=== PATIENT | male | born 1975 | race African-American/Black ===

== ENCOUNTER 2024-02-21 18:03 | Inpatient (IN) | payer MEDICAID, OTHER ==
[~2024-02-21] VITALS: Ht 185.4 cm; Wt 74.6 kg
[2024-02-21] MEDS: ARIPiprazole 15 MG TABLET PO ONE (20:13)
[2024-02-21] MEDS: ACETAMINOPHEN 500 MG TABLET PO ONE (20:13)
[2024-02-21 20:45] LABS: BASOPHILS % (AUTO) 0.6 % (0.0-2.0); EOSINOPHILS % (AUTO) 2.4 % (1.0-6.0); HEMATOCRIT 42.3 % (41-53); HEMOGLOBIN 13.7 g/dL (13.5-17.5); LYMPHOCYTES # (AUTO) 1.3 K/uL (1.0-4.8); LYMPHOCYTES % (AUTO) 24.4 % (22.0-44.0); MEAN CORPUSCULAR HEMOGLOBIN 27.9 pg (26.0-34.0); MEAN CORPUSCULAR HGB CONC 32.4 G/dL (31.0-37.0); MEAN CORPUSCULAR VOLUME 86 fL (80-100); MONOCYTES # (AUTO) 0.5 K/uL (0.1-1.0); MONOCYTES % (AUTO) 8.6 % (2.0-9.0); NEUTROPHILS # (AUTO) 3.5 K/uL (1.8-7.7); PLATELET COUNT (AUTO) 208 K/uL (150-450); RED BLOOD CELL COUNT(AUTO) 4.91 MIL/uL (4.50-5.90); RED CELL DISTRIBUTION WIDTH 14.4 % (11.5-14.5); WHITE BLOOD COUNT (AUTO) 5.5 K/uL (4.5-11.0)
[2024-02-21 20:46] LABS: ANION GAP 7 mmol/L (8-16); CALCIUM, TOTAL 8.8 mg/dL (8.8-10.5); CARBON DIOXIDE 31 mmol/L (22-29); CHLORIDE 105 mmol/L (98-107); CREATININE 1.24 mg/dL (0.60-1.30); GLOMERULAR FILTR. RATE CALC > 60 mL/min (>60); GLUCOSE,RANDOM 93 mg/dL (70-110); POTASSIUM 4.4 mmol/L (3.5-5.1); SODIUM SERUM 143 mmol/L (136-145); UREA NITROGEN, BLOOD 17 mg/dL (7-18)
[2024-02-21 20:49] LABS: ALANINE AMINOTRANSFERASE 38 U/L (12-78); ALBUMIN 3.7 g/dL (3.4-5.0); ALKALINE PHOSPHATASE 118 U/L (46-116); ASPARTATE AMINOTRANSFERASE 15 U/L (15-37); BILIRUBIN,TOTAL 0.2 mg/dL (0.1-1.0); TOTAL PROTEIN, SERUM 7.9 g/dL (6.4-8.2)
[2024-02-21 20:51] LABS: ALCOHOL, BLOOD (SERUM) < 3 mg/dL (0-10)
[2024-02-22 08:23] LABS: COVID AG,FIA SOURCE NASAL SWAB
[2024-02-22 09:25] LABS: SARS-COV2 (COVID) ANTIGEN,FIA Negative (Negative)
[2024-02-22] MEDS ORDERED: HALOPERIDOL 5 MG TABLET PO PRN (17:15)
[2024-02-22] MEDS ORDERED: ZOLPIDEM TARTRATE 10 MG TABLET PO PRN (17:15)
[2024-02-22] MEDS ORDERED: LORazepam 2 MG TABLET PO PRN (17:15)
[2024-02-22 17:59] LABS: ALCOHOL, URINE DRUG SCREEN NEGATIVE (NEGATIVE); AMPHET/METH SCREEN,URINE POSITIVE (NEGATIVE); BARBITURATE SCREEN, URINE NEGATIVE (NEGATIVE); BENZODIAZEPINES SCREEN,URINE NEGATIVE (NEGATIVE); CANNABINOID SCREEN,URINE POSITIVE (NEGATIVE); COCAINE SCREEN,URINE POSITIVE (NEGATIVE); METHADONE SCREEN, URINE NEGATIVE (NEGATIVE); OPIATE SCREEN,URINE NEGATIVE (NEGATIVE); PHENCYCLIDINE SCREEN,URINE NEGATIVE (NEGATIVE)
[2024-02-22 23:11] VITALS: BP 126/86; PULSE 65; RESP 18; TEMP 98.1
[2024-02-22] MEDS ORDERED: MAGNESIUM HYDROXIDE SUSPENSION 30 ML UDCUP PO PRN (23:30)
[2024-02-22] MEDS ORDERED: CloNIDine HCL 0.1 MG TABLET PO PRN (23:30)
[2024-02-22] MEDS ORDERED: ACETAMINOPHEN 325 MG TABLET PO PRN (23:30)
[2024-02-22] MEDS ORDERED: PETROLATUM,WHITE 28 GM JELLY TP PRN (23:30)
[2024-02-22] MEDS ORDERED: LOPERAMIDE HCL 2 MG CAPSULE PO PRN (23:30)
[2024-02-22] MEDS ORDERED: DOCUSATE SODIUM 100 MG CAPSULE PO PRN (23:30)
[2024-02-22] MEDS ORDERED: ALBUTEROL SULFATE HFA 90 MCG/PUFF 8 GM INHALER IH PRN (23:30)
[2024-02-22] MEDS ORDERED: GuaiFENesin/D-METHORPHAN [SUGAR-FREE] 200-20MG/10 ML SYRUP UDCUP PO PRN (23:30)
[2024-02-22] MEDS ORDERED: IBUPROFEN 400 MG TABLET PO PRN (23:30)
[2024-02-22] MEDS ORDERED: ONDANSETRON HCL 4 MG TABLET PO PRN (23:30)
[2024-02-22] MEDS ORDERED: PNEUMOCOCCAL VACCINE POLYVALENT 0.5 ML SYRINGE [PPSV23] IM. ONE (23:45)
[2024-02-23 09:11] VITALS: BP 131/88; PULSE 81; RESP 19; TEMP 98.5
[2024-02-23] MEDS ORDERED: MIRT-92 PO (11:08)
[2024-02-23] MEDS ORDERED: ARIP10TA38 PO (11:08)
[2024-02-23] MEDS ORDERED: BUPR-49 PO (11:08)
[2024-02-23] MEDS: BuPROPion HCL XL 150 MG ER TABLET PO SCH (13:15)
[2024-02-23] MEDS: ARIPiprazole 10 MG TABLET PO SCH (13:15)
[2024-02-23] MEDS ORDERED: OMEP20CA13 PO (14:59)
[2024-02-23] MEDS: MAG HYDROX/ALUMINUM HYD/SIMETH ES 30 ML SUSPENSION UDCUP PO PRN (15:48)
[2024-02-23 23:34] VITALS: BP 124/82; PULSE 62; RESP 18; TEMP 97.4
[2024-02-24 06:43] LABS: HEMOGLOBIN A1C 5.7 % (3.8-5.6)
[2024-02-24 06:59] LABS: BASOPHILS % (AUTO) 1.3 % (0.0-2.0); EOSINOPHILS % (AUTO) 4.6 % (1.0-6.0); HEMATOCRIT 45.4 % (41-53); HEMOGLOBIN 14.6 g/dL (13.5-17.5); LYMPHOCYTES # (AUTO) 1.8 K/uL (1.0-4.8); MEAN CORPUSCULAR HEMOGLOBIN 27.8 pg (26.0-34.0); MEAN CORPUSCULAR HGB CONC 32.1 G/dL (31.0-37.0); MEAN CORPUSCULAR VOLUME 87 fL (80-100); MONOCYTES # (AUTO) 0.4 K/uL (0.1-1.0); MONOCYTES % (AUTO) 9.6 % (2.0-9.0); NEUTROPHILS % (AUTO) 44.5 % (40.0-70.0); PLATELET COUNT (AUTO) 178 K/uL (150-450); RED BLOOD CELL COUNT(AUTO) 5.24 MIL/uL (4.50-5.90); RED CELL DISTRIBUTION WIDTH 14.5 % (11.5-14.5); WHITE BLOOD COUNT (AUTO) 4.6 K/uL (4.5-11.0)
[2024-02-24] MEDS: MULTIVITAMINS, THERAPEUTIC TABLET PO SCH (08:17)
[2024-02-24 10:04] VITALS: BP 127/76; PULSE 80; RESP 18; TEMP 97.2
[2024-02-24 10:38] LABS: ALANINE AMINOTRANSFERASE 39 U/L (12-78); ALBUMIN 3.1 g/dL (3.4-5.0); ALKALINE PHOSPHATASE 98 U/L (46-116); ANION GAP 10 mmol/L (8-16); ASPARTATE AMINOTRANSFERASE 21 U/L (15-37); BILIRUBIN,TOTAL 0.3 mg/dL (0.1-1.0); CARBON DIOXIDE 26 mmol/L (22-29); CHLORIDE 104 mmol/L (98-107); CREATININE 1.18 mg/dL (0.60-1.30); GLOMERULAR FILTR. RATE CALC > 60 mL/min (>60); GLUCOSE,RANDOM 105 mg/dL (70-110); POTASSIUM 4.5 mmol/L (3.5-5.1); SODIUM SERUM 140 mmol/L (136-145); THYROID STIMULATING HORMONE 1.15 uIU/mL (0.36-3.74); TOTAL PROTEIN, SERUM 6.9 g/dL (6.4-8.2); UREA NITROGEN, BLOOD 14 mg/dL (7-18)
[2024-02-24 20:38] VITALS: BP 120/67; PULSE 82; RESP 18; TEMP 97.4
[2024-02-25 09:00] VITALS: BP 145/83; PULSE 78; RESP 18; TEMP 97.5
[2024-02-25 23:32] VITALS: BP 123/76; PULSE 80; RESP 18; TEMP 98.2
[2024-02-26 09:19] VITALS: BP 126/67; PULSE 63; RESP 18; TEMP 97.4
[2024-02-26] MEDS ORDERED: BUPR-49 PO (14:39)
[2024-02-26] MEDS ORDERED: ARIP10TA38 PO (14:39)
[2024-02-26] MEDS: NICOTINE 14 MG/24 HOUR PATCH TD PRN (14:49)
== END 2024-02-26 17:30 | disposition home or self-care (01) | DRG 750 ==
LOC: EDBD 18:18 → EMS 18:18 → 3EI 02-22 21:30
PROVIDERS: ADMIT Psychiatry & Neurology Psychiatry; ATTEND Psychiatry & Neurology Psychiatry
PROC: GZHZZZZ Group Psychotherapy (ICD-10-PCS; principal; 2024-02-23)
PROC: GZ51ZZZ Individual Psychotherapy, Behavioral (ICD-10-PCS; 2024-02-23)
DX: F25.1 Schizoaffective disorder, depressive type (principal); R45.851 Suicidal ideations; F12.10 Cannabis abuse, uncomplicated; Z20.822 Contact with and (suspected) exposure to COVID-19; F14.10 Cocaine abuse, uncomplicated; F15.10 Other stimulant abuse, uncomplicated; I10 Essential (primary) hypertension; K86.1 Other chronic pancreatitis; T40.412A Poisoning by fentanyl or fentanyl analogs, intentional self-harm, initial encounter; Z59.00 Homelessness unspecified; Z79.899 Other long term (current) drug therapy; Z87.891 Personal history of nicotine dependence; Y92.89 Other specified places as the place of occurrence of the external cause
CPT/HCPCS: 80053; 80307; 83036; 84443; 85025; 87081; 99285; G0480

== ENCOUNTER 2024-03-29 23:57 | Inpatient (IN) | payer MEDICAID, OTHER ==
[~2024-03-29] VITALS: Ht 185.4 cm; Wt 76.6 kg
[~2024-03-29 23:57] MED LIST: ARIP10TA38 PO; BUPR-49 PO; OMEP20 PO
[2024-03-30] MEDS ORDERED: GuaiFENesin/D-METHORPHAN [SUGAR-FREE] 200-20MG/10 ML SYRUP UDCUP PO PRN (02:45)
[2024-03-30] MEDS ORDERED: OLANZapine 5 MG RAPDIS TABLET PO PRN ×2 (02:45→10:45)
[2024-03-30] MEDS ORDERED: LOPERAMIDE HCL 2 MG CAPSULE PO PRN (02:45)
[2024-03-30] MEDS ORDERED: ZOLPIDEM TARTRATE 10 MG TABLET PO PRN ×2 (02:45→10:45)
[2024-03-30] MEDS ORDERED: MAGNESIUM HYDROXIDE SUSPENSION 30 ML UDCUP PO PRN (02:45)
[2024-03-30] MEDS ORDERED: TUBERCULIN, PURIFIED PROTEIN DERIVATIVE 5 TU/0.1 ML SYRINGE ID ONE (02:45)
[2024-03-30] MEDS ORDERED: HydrOXYzine PAMOATE 50 MG CAPSULE PO PRN (02:45)
[2024-03-30] MEDS ORDERED: PROMETHAZINE HCL 25 MG TABLET PO PRN (02:45)
[2024-03-30] MEDS ORDERED: LORazepam 2 MG TABLET PO PRN ×2 (02:45→10:45)
[2024-03-30] MEDS ORDERED: MAG HYDROX/ALUMINUM HYD/SIMETH ES 30 ML SUSPENSION UDCUP PO PRN (02:45)
[2024-03-30 03:00] LABS: BASOPHILS % (AUTO) 1.1 % (0.0-2.0); EOSINOPHILS % (AUTO) 3.8 % (1.0-6.0); HEMATOCRIT 45.4 % (41-53); HEMOGLOBIN 14.8 g/dL (13.5-17.5); LYMPHOCYTES # (AUTO) 1.8 K/uL (1.0-4.8); LYMPHOCYTES % (AUTO) 35.1 % (22.0-44.0); MEAN CORPUSCULAR HEMOGLOBIN 28.3 pg (26.0-34.0); MEAN CORPUSCULAR HGB CONC 32.7 G/dL (31.0-37.0); MEAN CORPUSCULAR VOLUME 86 fL (80-100); MONOCYTES # (AUTO) 0.4 K/uL (0.1-1.0); MONOCYTES % (AUTO) 6.7 % (2.0-9.0); NEUTROPHILS # (AUTO) 2.8 K/uL (1.8-7.7); NEUTROPHILS % (AUTO) 53.3 % (40.0-70.0); PLATELET COUNT (AUTO) 170 K/uL (150-450); RED BLOOD CELL COUNT(AUTO) 5.25 MIL/uL (4.50-5.90); RED CELL DISTRIBUTION WIDTH 14.3 % (11.5-14.5); WHITE BLOOD COUNT (AUTO) 5.2 K/uL (4.5-11.0)
[2024-03-30 03:06] LABS: COVID AG,FIA SOURCE NASAL SWAB
[2024-03-30 03:14] LABS: ANION GAP 4 mmol/L (8-16); CALCIUM, TOTAL 9.9 mg/dL (8.8-10.5); CARBON DIOXIDE 35 mmol/L (22-29); CHLORIDE 105 mmol/L (98-107); CREATININE 1.21 mg/dL (0.60-1.30); GLOMERULAR FILTR. RATE CALC > 60 mL/min (>60); GLUCOSE,RANDOM 120 mg/dL (70-110); POTASSIUM 4.9 mmol/L (3.5-5.1); SODIUM SERUM 144 mmol/L (136-145); UREA NITROGEN, BLOOD 13 mg/dL (7-18)
[2024-03-30 03:20] LABS: ALANINE AMINOTRANSFERASE 41 U/L (12-78); ALBUMIN 3.9 g/dL (3.4-5.0); ALKALINE PHOSPHATASE 101 U/L (46-116); ASPARTATE AMINOTRANSFERASE 18 U/L (15-37); BILIRUBIN,TOTAL 0.5 mg/dL (0.1-1.0); TOTAL PROTEIN, SERUM 7.7 g/dL (6.4-8.2)
[2024-03-30 03:27] LABS: SARS-COV2 (COVID) ANTIGEN,FIA Negative (Negative)
[2024-03-30 03:27] LABS: ALCOHOL, BLOOD (SERUM) < 3 mg/dL (0-10)
[2024-03-30] MEDS: FOLIC ACID 1 MG TABLET PO SCH (08:27)
[2024-03-30] MEDS: THIAMINE 100 MG TABLET PO SCH (08:27)
[2024-03-30] MEDS: MULTIVITAMINS WITH MINERALS, THERAPEUTIC TABLET PO SCH (08:27)
[2024-03-30] MEDS: NALTREXONE HCL 50 MG TABLET PO SCH (11:00)
[2024-03-30] MEDS: BuPROPion HCL XL 150 MG ER TABLET PO SCH (12:02)
[2024-03-30] MEDS: ARIPiprazole 5 MG TABLET PO SCH (12:02)
[2024-03-30 12:03] LABS: PH,URINE DRUG SCREEN 7.5 (5.0-8.0)
[2024-03-30 12:09] LABS: ALCOHOL, URINE DRUG SCREEN NEGATIVE (NEGATIVE); AMPHET/METH SCREEN,URINE NEGATIVE (NEGATIVE); BARBITURATE SCREEN, URINE NEGATIVE (NEGATIVE); BENZODIAZEPINES SCREEN,URINE NEGATIVE (NEGATIVE); CANNABINOID SCREEN,URINE POSITIVE (NEGATIVE); COCAINE SCREEN,URINE POSITIVE (NEGATIVE); METHADONE SCREEN, URINE NEGATIVE (NEGATIVE); OPIATE SCREEN,URINE NEGATIVE (NEGATIVE); PHENCYCLIDINE SCREEN,URINE NEGATIVE (NEGATIVE)
[2024-03-30 15:36] VITALS: BP 132/70; PULSE 84; RESP 18; TEMP 97.8
[2024-03-30 20:11] VITALS: RESP 20
[2024-03-30] MEDS: MELATONIN 5 MG TABLET PO SCH (21:00)
[2024-03-31 08:27] VITALS: BP 124/73; PULSE 62; RESP 18; TEMP 98.3
[2024-03-31 20:24] VITALS: BP 130/80; PULSE 91; RESP 18; TEMP 96.6
[2024-04-01] VITALS (7 sets, daily range): BP systolic 135–138; BP diastolic 75–93; PULSE 60–111; RESP 16–18; TEMP 97.6–98.1; O2SAT 96–100
[2024-04-01] MEDS: ACETAMINOPHEN 325 MG TABLET PO PRN (02:24)
[2024-04-01] MEDS: BuPROPion HCL XL 150 MG ER TABLET PO SCH (08:35)
[2024-04-01] MEDS ORDERED: ARIP5TAB37 PO (15:28)
[2024-04-01] MEDS ORDERED: NALT50TA33 PO (15:28)
[2024-04-01] MEDS ORDERED: MELA5TAB40 PO (15:28)
[2024-04-01] MEDS ORDERED: BUPR-49 PO (15:28)
[2024-04-02 08:08] VITALS: BP 152/92; PULSE 97; RESP 16; TEMP 97.8; O2SAT 99
[2024-04-02] MEDS: BuPROPion HCL XL 150 MG ER TABLET PO SCH (08:35)
[2024-04-02] MEDS: ARIPiprazole 10 MG TABLET PO SCH (08:35)
== END 2024-04-02 11:15 | disposition home or self-care (01) | DRG 750 ==
LOC: EMS 23:59 → B2S 03-30 10:57
PROVIDERS: ADMIT Psychiatry & Neurology Psychiatry; ATTEND Psychiatry & Neurology Psychiatry
PROC: GZHZZZZ Group Psychotherapy (ICD-10-PCS; principal; 2024-03-30)
PROC: GZ51ZZZ Individual Psychotherapy, Behavioral (ICD-10-PCS; 2024-03-30)
PROC: GZ58ZZZ Individual Psychotherapy, Cognitive-Behavioral (ICD-10-PCS; 2024-03-30)
DX: F25.9 Schizoaffective disorder, unspecified (principal); R45.851 Suicidal ideations; F15.10 Other stimulant abuse, uncomplicated; F17.210 Nicotine dependence, cigarettes, uncomplicated; F32.A Depression, unspecified; Z20.822 Contact with and (suspected) exposure to COVID-19; I10 Essential (primary) hypertension; J44.9 Chronic obstructive pulmonary disease, unspecified; F14.10 Cocaine abuse, uncomplicated; Z59.02 Unsheltered homelessness
CPT/HCPCS: 80053; 80307; 85025; G0480; Q9967

== ENCOUNTER 2024-04-02 19:34 | Emergency (ER) | payer MEDICAID, OTHER ==
[~2024-04-02] VITALS: Ht 185.4 cm; Wt 75.0 kg
[~2024-04-02 19:34] MED LIST changes: +ARIP5TAB37 PO; +MELA5TAB40 PO; +NALT50TA33 PO
[2024-04-02 20:14] LABS: HEMOGLOBIN 15.9 g/dL (13.5-17.5); LYMPHOCYTES # (AUTO) 1.5 K/uL (1.0-4.8); MEAN CORPUSCULAR HEMOGLOBIN 28.2 pg (26.0-34.0); MONOCYTES # (AUTO) 0.3 K/uL (0.1-1.0)
[2024-04-02 20:17] LABS: BASOPHILS % (AUTO) 0.6 % (0.0-2.0); EOSINOPHILS % (AUTO) 0.6 % (1.0-6.0); HEMATOCRIT 48.5 % (41-53); LYMPHOCYTES % (AUTO) 28.9 % (22.0-44.0); MEAN CORPUSCULAR HGB CONC 32.8 G/dL (31.0-37.0); MEAN CORPUSCULAR VOLUME 86 fL (80-100); MONOCYTES % (AUTO) 5.7 % (2.0-9.0); NEUTROPHILS # (AUTO) 3.3 K/uL (1.8-7.7); NEUTROPHILS % (AUTO) 64.2 % (40.0-70.0); PLATELET COUNT (AUTO) 168 K/uL (150-450); RED BLOOD CELL COUNT(AUTO) 5.65 MIL/uL (4.50-5.90); WHITE BLOOD COUNT (AUTO) 5.1 K/uL (4.5-11.0)
[2024-04-02 20:23] LABS: ANION GAP 8 mmol/L (8-16); CARBON DIOXIDE 32 mmol/L (22-29); CHLORIDE 103 mmol/L (98-107); CREATININE 1.25 mg/dL (0.60-1.30); GLOMERULAR FILTR. RATE CALC > 60 mL/min (>60); GLUCOSE,RANDOM 115 mg/dL (70-110); POTASSIUM 4.8 mmol/L (3.5-5.1); SODIUM SERUM 143 mmol/L (136-145); UREA NITROGEN, BLOOD 18 mg/dL (7-18)
[2024-04-02 20:28] VITALS: TEMP 97.3
[2024-04-02 20:31] LABS: TROPONIN I-HIGH SENSITIVITY 4 ng/L (<76)
[2024-04-02] MEDS: ALBUTEROL SULFATE 2.5 MG/0.5 ML NEB SOLUTION NEB ONE (22:35)
[2024-04-02] MEDS: IPRATROPIUM BROMIDE 0.5 MG/2.5 ML NEB SOLUTION NEB ONE (22:35)
[2024-04-02] MEDS: OxyCODONE HCL/ACETAMINOPHEN 5-325 MG TABLET PO ONE (22:47)
[2024-04-02 23:00] VITALS: PULSE 92; RESP 22; O2SAT 96
[2024-04-02 23:02] VITALS: PULSE 92; RESP 22; O2SAT 96
[2024-04-02 23:04] LABS: TROPONIN I-HIGH SENSITIVITY 4 ng/L (<76)
[2024-04-02 23:28] VITALS: BP 141/89; PULSE 92; RESP 22
== END 2024-04-02 23:46 | disposition home or self-care (01) ==
LOC: EMS 19:34
DX: R07.89 Other chest pain (principal); I10 Essential (primary) hypertension; F17.210 Nicotine dependence, cigarettes, uncomplicated; R06.02 Shortness of breath; F12.90 Cannabis use, unspecified, uncomplicated; F15.10 Other stimulant abuse, uncomplicated
CPT/HCPCS: 71045; 80048; 84484; 85025; 93005; 94640; 99285; 36415-L1; 36415-TC; J7613

== ENCOUNTER 2024-04-04 16:20 | Inpatient (IN) | payer MEDICAID, OTHER ==
[~2024-04-04] VITALS: Ht 185.4 cm; Wt 82.1 kg
[~2024-04-04 16:20] MED LIST changes: -ARIP10TA38 PO; -OMEP20 PO
[2024-04-04 17:09] LABS: BASOPHILS % (AUTO) 0.9 % (0.0-2.0); HEMATOCRIT 46.1 % (41-53); HEMOGLOBIN 14.9 g/dL (13.5-17.5); LYMPHOCYTES # (AUTO) 2.1 K/uL (1.0-4.8); LYMPHOCYTES % (AUTO) 37.2 % (22.0-44.0); MEAN CORPUSCULAR HEMOGLOBIN 27.7 pg (26.0-34.0); MEAN CORPUSCULAR HGB CONC 32.2 G/dL (31.0-37.0); MEAN CORPUSCULAR VOLUME 86 fL (80-100); MONOCYTES # (AUTO) 0.5 K/uL (0.1-1.0); MONOCYTES % (AUTO) 8.5 % (2.0-9.0); NEUTROPHILS # (AUTO) 2.9 K/uL (1.8-7.7); NEUTROPHILS % (AUTO) 51.4 % (40.0-70.0); PLATELET COUNT (AUTO) 165 K/uL (150-450); RED BLOOD CELL COUNT(AUTO) 5.36 MIL/uL (4.50-5.90); RED CELL DISTRIBUTION WIDTH 14.1 % (11.5-14.5); WHITE BLOOD COUNT (AUTO) 5.7 K/uL (4.5-11.0)
[2024-04-04] MEDS ORDERED: ZOLPIDEM TARTRATE 10 MG TABLET PO PRN (17:15)
[2024-04-04] MEDS ORDERED: OLANZapine 5 MG RAPDIS TABLET PO PRN (17:15)
[2024-04-04] MEDS ORDERED: LORazepam 2 MG TABLET PO PRN (17:15)
[2024-04-04 17:20] LABS: ANION GAP 7 mmol/L (8-16); CALCIUM, TOTAL 9.4 mg/dL (8.8-10.5); CARBON DIOXIDE 28 mmol/L (22-29); CHLORIDE 103 mmol/L (98-107); CREATININE 1.25 mg/dL (0.60-1.30); GLOMERULAR FILTR. RATE CALC > 60 mL/min (>60); GLUCOSE,RANDOM 101 mg/dL (70-110); POTASSIUM 3.8 mmol/L (3.5-5.1); SODIUM SERUM 138 mmol/L (136-145); UREA NITROGEN, BLOOD 18 mg/dL (7-18)
[2024-04-04 17:24] LABS: ALANINE AMINOTRANSFERASE 35 U/L (12-78); ALKALINE PHOSPHATASE 90 U/L (46-116); ASPARTATE AMINOTRANSFERASE 21 U/L (15-37); BILIRUBIN,TOTAL 0.6 mg/dL (0.1-1.0); TOTAL PROTEIN, SERUM 7.6 g/dL (6.4-8.2)
[2024-04-04 17:25] LABS: ALCOHOL, BLOOD (SERUM) < 3 mg/dL (0-10)
[2024-04-04 17:40] LABS: COVID AG,FIA SOURCE NASAL SWAB
[2024-04-04] MEDS: DiphenhydrAMINE HCL 25 MG CAPSULE PO ONE (17:54)
[2024-04-04] MEDS: LORazepam 2 MG TABLET PO ONE (17:54)
[2024-04-04 17:59] LABS: SARS-COV2 (COVID) ANTIGEN,FIA Negative (Negative)
[2024-04-04 23:43] VITALS: BP 131/86; PULSE 76; RESP 17; TEMP 98.2; O2SAT 98
[2024-04-05 09:21] VITALS: BP 121/60; PULSE 86; RESP 17; TEMP 97.8; O2SAT 100
[2024-04-05] MEDS ORDERED: PROMETHAZINE HCL 25 MG TABLET PO PRN ×2 (09:30)
[2024-04-05] MEDS ORDERED: HydrOXYzine PAMOATE 50 MG CAPSULE PO PRN (09:30)
[2024-04-05] MEDS ORDERED: LOPERAMIDE HCL 2 MG CAPSULE PO PRN (09:30)
[2024-04-05] MEDS ORDERED: GuaiFENesin/D-METHORPHAN [SUGAR-FREE] 200-20MG/10 ML SYRUP UDCUP PO PRN (09:30)
[2024-04-05] MEDS ORDERED: MAGNESIUM HYDROXIDE SUSPENSION 30 ML UDCUP PO PRN (09:30)
[2024-04-05] MEDS: PALIPERIDONE PALMITATE 234 MG/1.5 ML SYRINGE IM ONE (16:00)
[2024-04-05] MEDS: THIAMINE 100 MG TABLET PO SCH (16:44)
[2024-04-05] MEDS: ACETAMINOPHEN 325 MG TABLET PO PRN (16:44)
[2024-04-05] MEDS: OLANZapine 5 MG RAPDIS TABLET PO SCH (20:18)
[2024-04-05 21:12] VITALS: BP 137/85; PULSE 96; RESP 17; TEMP 97.2; O2SAT 99
[2024-04-05] MEDS: MELATONIN 5 MG TABLET PO SCH (21:22)
[2024-04-06 08:42] VITALS: BP 126/82; PULSE 89; RESP 18; TEMP 97.9; O2SAT 100
[2024-04-06] MEDS: OMEGA-3/DHA/EPA/FISH OIL 1,000 MG CAPSULE PO SCH (09:00)
[2024-04-06] MEDS: BuPROPion HCL XL 150 MG ER TABLET PO SCH (09:00)
[2024-04-06] MEDS: NALTREXONE HCL 50 MG TABLET PO SCH (09:00)
[2024-04-06] MEDS: FOLIC ACID 1 MG TABLET PO SCH (09:00)
[2024-04-06] MEDS: MULTIVITAMINS WITH MINERALS, THERAPEUTIC TABLET PO SCH (09:00)
[2024-04-06 20:03] VITALS: BP 120/80; PULSE 88; RESP 17; TEMP 98; O2SAT 98
[2024-04-06 21:31] LABS: GLUCOMETER DEV NAME(LOC) BV2S.; GLUCOSE,POINT OF CARE 286 MG/DL (70-110)
[2024-04-07 09:00] VITALS: RESP 18
[2024-04-07] MEDS: MAG HYDROX/ALUMINUM HYD/SIMETH ES 30 ML SUSPENSION UDCUP PO PRN (10:58)
[2024-04-07 20:30] VITALS: BP 126/84; PULSE 78; RESP 18; TEMP 97.8; O2SAT 100
[2024-04-07 23:35] VITALS: BP 124/98; PULSE 82; RESP 18; TEMP 97.6; O2SAT 97
[2024-04-08] MEDS: BuPROPion HCL XL 150 MG ER TABLET PO SCH (10:25)
[2024-04-08] MEDS ORDERED: OLAN10TA26 PO (12:49)
[2024-04-08] MEDS ORDERED: OMEG-135 PO (12:49)
[2024-04-08] MEDS ORDERED: OLANZapine 10 MG RAPDIS TABLET PO SCH (21:00)
[2024-04-09] MEDS ORDERED: PALIPERIDONE PALMITATE 156 MG/ML SYRINGE IM ONE (09:00)
== END 2024-04-08 14:20 | disposition home or self-care (01) | DRG 750 ==
LOC: EMS 16:20 → EDH 18:39 → UNDOADMIN 18:39 → B2S 21:34
PROVIDERS: ADMIT Psychiatry & Neurology Psychiatry; ATTEND Psychiatry & Neurology Psychiatry
PROC: GZHZZZZ Group Psychotherapy (ICD-10-PCS; principal; 2024-04-05)
PROC: GZ51ZZZ Individual Psychotherapy, Behavioral (ICD-10-PCS; 2024-04-05)
DX: F25.1 Schizoaffective disorder, depressive type (principal); R45.851 Suicidal ideations; F15.10 Other stimulant abuse, uncomplicated; F17.210 Nicotine dependence, cigarettes, uncomplicated; Z20.822 Contact with and (suspected) exposure to COVID-19; I10 Essential (primary) hypertension; J44.9 Chronic obstructive pulmonary disease, unspecified; F19.10 Other psychoactive substance abuse, uncomplicated; Z79.899 Other long term (current) drug therapy
CPT/HCPCS: 80053; 82962; 85025; 87081; 99285; G0480; Q9967

== ENCOUNTER 2024-04-09 01:01 | Emergency (ER) | payer MEDICAID ==
[~2024-04-09] VITALS: Ht 185.4 cm; Wt 7.6 kg
[~2024-04-09 01:01] MED LIST changes: -ARIP5TAB37 PO; -BUPR-49 PO; +OLAN10TA26 PO; +OMEG-135 PO
[2024-04-09 01:58] VITALS: TEMP 97.9
[2024-04-09 02:24] LABS: BASOPHILS % (AUTO) 1.2 % (0.0-2.0); EOSINOPHILS % (AUTO) 0.8 % (1.0-6.0); HEMATOCRIT 45.1 % (41-53); HEMOGLOBIN 14.8 g/dL (13.5-17.5); LYMPHOCYTES # (AUTO) 1.4 K/uL (1.0-4.8); LYMPHOCYTES % (AUTO) 25.9 % (22.0-44.0); MEAN CORPUSCULAR HGB CONC 32.9 G/dL (31.0-37.0); MEAN CORPUSCULAR VOLUME 85 fL (80-100); MONOCYTES # (AUTO) 0.4 K/uL (0.1-1.0); MONOCYTES % (AUTO) 6.4 % (2.0-9.0); NEUTROPHILS # (AUTO) 3.7 K/uL (1.8-7.7); NEUTROPHILS % (AUTO) 65.7 % (40.0-70.0); PLATELET COUNT (AUTO) 184 K/uL (150-450); RED BLOOD CELL COUNT(AUTO) 5.29 MIL/uL (4.50-5.90); RED CELL DISTRIBUTION WIDTH 13.9 % (11.5-14.5); WHITE BLOOD COUNT (AUTO) 5.6 K/uL (4.5-11.0)
[2024-04-09 02:39] LABS: ANION GAP 4 mmol/L (8-16); CALCIUM, TOTAL 9.5 mg/dL (8.8-10.5); CARBON DIOXIDE 33 mmol/L (22-29); CHLORIDE 101 mmol/L (98-107); CREATININE 1.11 mg/dL (0.60-1.30); GLOMERULAR FILTR. RATE CALC > 60 mL/min (>60); GLUCOSE,RANDOM 109 mg/dL (70-110); POTASSIUM 4.1 mmol/L (3.5-5.1); SODIUM SERUM 138 mmol/L (136-145); UREA NITROGEN, BLOOD 15 mg/dL (7-18)
[2024-04-09 02:47] LABS: ALCOHOL, BLOOD (SERUM) < 3 mg/dL (0-10); B-TYPE NATRIURETIC PEPTIDE < 5 pg/mL (0-100); TROPONIN I-HIGH SENSITIVITY 4 ng/L (<76)
[2024-04-09 02:52] LABS: ALCOHOL, URINE DRUG SCREEN NEGATIVE (NEGATIVE); AMPHET/METH SCREEN,URINE POSITIVE (NEGATIVE); BARBITURATE SCREEN, URINE NEGATIVE (NEGATIVE); BENZODIAZEPINES SCREEN,URINE NEGATIVE (NEGATIVE); CANNABINOID SCREEN,URINE NEGATIVE (NEGATIVE); COCAINE SCREEN,URINE POSITIVE (NEGATIVE); METHADONE SCREEN, URINE NEGATIVE (NEGATIVE); OPIATE SCREEN,URINE NEGATIVE (NEGATIVE); PHENCYCLIDINE SCREEN,URINE NEGATIVE (NEGATIVE)
[2024-04-09 04:32] VITALS: BP 145/90; PULSE 89; RESP 17
== END 2024-04-09 04:35 | disposition home or self-care (01) ==
LOC: EMS 01:03
DX: F15.10 Other stimulant abuse, uncomplicated (principal); R00.2 Palpitations; I10 Essential (primary) hypertension; F17.210 Nicotine dependence, cigarettes, uncomplicated; F14.90 Cocaine use, unspecified, uncomplicated; F12.90 Cannabis use, unspecified, uncomplicated; Z98.890 Other specified postprocedural states
CPT/HCPCS: 99285; 71045; 80048; 83880; 84484; 85025; 36415; 93005; 80307; G0480

== ENCOUNTER 2024-04-14 00:06 | Emergency (ER) | payer MEDICAID, OTHER ==
[~2024-04-14] VITALS: Ht 185.4 cm; Wt 68.2 kg
[2024-04-14 00:23] VITALS: BP 149/98; PULSE 110; RESP 18; TEMP 98.4
[2024-04-14 00:31] LABS: BASOPHILS % (AUTO) 0.3 % (0.0-2.0); HEMATOCRIT 44.4 % (41-53); HEMOGLOBIN 14.3 g/dL (13.5-17.5); LYMPHOCYTES # (AUTO) 2.1 K/uL (1.0-4.8); LYMPHOCYTES % (AUTO) 49.8 % (22.0-44.0); MEAN CORPUSCULAR HEMOGLOBIN 27.9 pg (26.0-34.0); MEAN CORPUSCULAR HGB CONC 32.3 G/dL (31.0-37.0); MEAN CORPUSCULAR VOLUME 87 fL (80-100); MONOCYTES # (AUTO) 0.4 K/uL (0.1-1.0); MONOCYTES % (AUTO) 8.6 % (2.0-9.0); NEUTROPHILS # (AUTO) 1.6 K/uL (1.8-7.7); NEUTROPHILS % (AUTO) 38.3 % (40.0-70.0); PLATELET COUNT (AUTO) 175 K/uL (150-450); RED BLOOD CELL COUNT(AUTO) 5.13 MIL/uL (4.50-5.90); WHITE BLOOD COUNT (AUTO) 4.3 K/uL (4.5-11.0)
[2024-04-14 00:41] LABS: ANION GAP 5 mmol/L (8-16); CALCIUM, TOTAL 9.1 mg/dL (8.8-10.5); CARBON DIOXIDE 33 mmol/L (22-29); CHLORIDE 106 mmol/L (98-107); CREATININE 1.13 mg/dL (0.60-1.30); GLOMERULAR FILTR. RATE CALC > 60 mL/min (>60); GLUCOSE,RANDOM 92 mg/dL (70-110); SODIUM SERUM 144 mmol/L (136-145); UREA NITROGEN, BLOOD 12 mg/dL (7-18)
[2024-04-14 00:46] LABS: ALANINE AMINOTRANSFERASE 41 U/L (12-78); ALBUMIN 3.7 g/dL (3.4-5.0); ALKALINE PHOSPHATASE 87 U/L (46-116); ASPARTATE AMINOTRANSFERASE 25 U/L (15-37); BILIRUBIN,TOTAL 0.2 mg/dL (0.1-1.0); TOTAL PROTEIN, SERUM 7.5 g/dL (6.4-8.2)
[2024-04-14 00:49] LABS: TROPONIN I-HIGH SENSITIVITY 5 ng/L (<76)
[2024-04-14 01:31] LABS: ALCOHOL, URINE DRUG SCREEN NEGATIVE (NEGATIVE); AMPHET/METH SCREEN,URINE NEGATIVE (NEGATIVE); BARBITURATE SCREEN, URINE NEGATIVE (NEGATIVE); BENZODIAZEPINES SCREEN,URINE NEGATIVE (NEGATIVE); CANNABINOID SCREEN,URINE POSITIVE (NEGATIVE); COCAINE SCREEN,URINE POSITIVE (NEGATIVE); METHADONE SCREEN, URINE NEGATIVE (NEGATIVE); OPIATE SCREEN,URINE NEGATIVE (NEGATIVE); PHENCYCLIDINE SCREEN,URINE NEGATIVE (NEGATIVE)
[2024-04-14] MEDS: LORazepam 1 MG TABLET PO ONE (02:08)
== END 2024-04-14 02:17 | disposition home or self-care (01) ==
LOC: EMS 00:07
DX: R07.89 Other chest pain (principal); I10 Essential (primary) hypertension; F14.90 Cocaine use, unspecified, uncomplicated; F12.90 Cannabis use, unspecified, uncomplicated; F17.210 Nicotine dependence, cigarettes, uncomplicated
CPT/HCPCS: 71045; 80053; 80307; 84484; 85025; 93005; 99285; 36415-L1; 36415-TC

== ENCOUNTER 2024-04-16 00:47 | Emergency (ER) | payer OTHER ==
[~2024-04-16] VITALS: Ht 185.4 cm; Wt 70.0 kg
[2024-04-16 00:59] VITALS: TEMP 98.4
[2024-04-16 02:42] VITALS: BP 152/87; PULSE 91; RESP 20
== END 2024-04-16 04:05 | disposition home or self-care (01) ==
LOC: EMS 00:48
DX: F25.1 Schizoaffective disorder, depressive type (principal); F15.10 Other stimulant abuse, uncomplicated; I10 Essential (primary) hypertension; F17.210 Nicotine dependence, cigarettes, uncomplicated; F12.90 Cannabis use, unspecified, uncomplicated; F14.90 Cocaine use, unspecified, uncomplicated; Z59.00 Homelessness unspecified
CPT/HCPCS: 99281; Z7502

== ENCOUNTER 2024-04-19 09:09 | Emergency (ER) | payer OTHER ==
[~2024-04-19] VITALS: Ht 180.3 cm; Wt 72.7 kg
[2024-04-19] MEDS ORDERED: ARIP2TAB3 PO (09:15)
[2024-04-19] MEDS ORDERED: BUPR-344 PO (09:15)
[2024-04-19 09:18] VITALS: TEMP 98.5
[2024-04-19 09:31] LABS: BASOPHILS % (AUTO) 0.6 % (0.0-2.0); HEMATOCRIT 42.6 % (41-53); HEMOGLOBIN 13.8 g/dL (13.5-17.5); LYMPHOCYTES # (AUTO) 1.2 K/uL (1.0-4.8); LYMPHOCYTES % (AUTO) 34.2 % (22.0-44.0); MEAN CORPUSCULAR HEMOGLOBIN 27.8 pg (26.0-34.0); MEAN CORPUSCULAR HGB CONC 32.4 G/dL (31.0-37.0); MEAN CORPUSCULAR VOLUME 86 fL (80-100); MONOCYTES # (AUTO) 0.5 K/uL (0.1-1.0); MONOCYTES % (AUTO) 14.1 % (2.0-9.0); NEUTROPHILS # (AUTO) 1.6 K/uL (1.8-7.7); NEUTROPHILS % (AUTO) 48.1 % (40.0-70.0); PLATELET COUNT (AUTO) 146 K/uL (150-450); RED BLOOD CELL COUNT(AUTO) 4.97 MIL/uL (4.50-5.90); RED CELL DISTRIBUTION WIDTH 13.8 % (11.5-14.5); WHITE BLOOD COUNT (AUTO) 3.4 K/uL (4.5-11.0)
[2024-04-19 09:40] LABS: ANION GAP 6 mmol/L (8-16); CALCIUM, TOTAL 9.3 mg/dL (8.8-10.5); CARBON DIOXIDE 31 mmol/L (22-29); CHLORIDE 102 mmol/L (98-107); CREATININE 1.05 mg/dL (0.60-1.30); GLOMERULAR FILTR. RATE CALC > 60 mL/min (>60); GLUCOSE,RANDOM 105 mg/dL (70-110); POTASSIUM 3.6 mmol/L (3.5-5.1); SODIUM SERUM 139 mmol/L (136-145); UREA NITROGEN, BLOOD 11 mg/dL (7-18)
[2024-04-19 09:45] LABS: ALANINE AMINOTRANSFERASE 31 U/L (12-78); ALBUMIN 3.4 g/dL (3.4-5.0); ALKALINE PHOSPHATASE 79 U/L (46-116); ASPARTATE AMINOTRANSFERASE 25 U/L (15-37); BILIRUBIN,TOTAL 0.5 mg/dL (0.1-1.0)
[2024-04-19 10:20] LABS: APPEARANCE,URINE CLEAR (CLEAR); BILIRUBIN,URINE NEGATIVE (NEGATIVE); COLOR,URINE YELLOW (YELLOW); GLUCOSE, URINE (UA) NEGATIVE (NEGATIVE); KETONES,URINE NEGATIVE (NEGATIVE); LEUKOCYTE ESTERASE ,URINE NEGATIVE (NEGATIVE); NITRATE,URINE NEGATIVE (NEGATIVE); OCCULT BLOOD,URINE NEGATIVE (NEGATIVE); PROTEIN,URINE TRACE mg/dL (NEGATIVE); SPECIFIC GRAVITIY, URINE 1.025 (1.003-1.030); UROBILINOGEN,URINE <=1.0 mg/dL (<=1.0)
[2024-04-19 10:44] VITALS: BP 148/92; PULSE 87; RESP 18
== END 2024-04-19 11:11 | disposition home or self-care (01) ==
LOC: EMS 09:09
DX: R82.998 Other abnormal findings in urine (principal); F25.1 Schizoaffective disorder, depressive type; F19.10 Other psychoactive substance abuse, uncomplicated; I10 Essential (primary) hypertension; F17.210 Nicotine dependence, cigarettes, uncomplicated; F12.90 Cannabis use, unspecified, uncomplicated; F15.90 Other stimulant use, unspecified, uncomplicated; F14.90 Cocaine use, unspecified, uncomplicated
CPT/HCPCS: 80053; 81003; 85025; 99283

== ENCOUNTER 2024-04-21 02:51 | Emergency (ER) | payer OTHER ==
[~2024-04-21] VITALS: Ht 185.4 cm; Wt 100.0 kg
[~2024-04-21 02:51] MED LIST changes: +ARIP2TAB3 PO; +BUPR-344 PO; -MELA5TAB40 PO; -NALT50TA33 PO; -OLAN10TA26 PO; -OMEG-135 PO
[2024-04-21 02:55] VITALS: BP 123/82; PULSE 85; RESP 16; TEMP 98.2
== END 2024-04-21 05:12 | disposition home or self-care (01) ==
LOC: EMS 02:52
DX: R31.9 Hematuria, unspecified (principal); R30.0 Dysuria; F17.210 Nicotine dependence, cigarettes, uncomplicated; F12.90 Cannabis use, unspecified, uncomplicated; F15.10 Other stimulant abuse, uncomplicated; I10 Essential (primary) hypertension
CPT/HCPCS: 99282; Z7502

== ENCOUNTER 2024-04-26 00:46 | Emergency (ER) | payer OTHER ==
[~2024-04-26] VITALS: Ht 185.4 cm; Wt 75.0 kg
[2024-04-26 00:57] VITALS: BP 154/90; PULSE 107; RESP 16; TEMP 98.1
[2024-04-26 01:40] LABS: APPEARANCE,URINE CLEAR (CLEAR); BILIRUBIN,URINE NEGATIVE (NEGATIVE); COLOR,URINE YELLOW (YELLOW); GLUCOSE, URINE (UA) NEGATIVE (NEGATIVE); KETONES,URINE NEGATIVE (NEGATIVE); LEUKOCYTE ESTERASE ,URINE NEGATIVE (NEGATIVE); NITRATE,URINE NEGATIVE (NEGATIVE); OCCULT BLOOD,URINE NEGATIVE (NEGATIVE); PH,URINE 5.5 (5.0-8.0); PH,URINE DRUG SCREEN 5.5 (5.0-8.0); PROTEIN,URINE 100-200,SEE CONFIRM mg/dL (NEGATIVE); SPECIFIC GRAVITIY, URINE 1.037 (1.003-1.030)
[2024-04-26 01:48] LABS: ALCOHOL, URINE DRUG SCREEN NEGATIVE (NEGATIVE); AMPHET/METH SCREEN,URINE NEGATIVE (NEGATIVE); BARBITURATE SCREEN, URINE NEGATIVE (NEGATIVE); BENZODIAZEPINES SCREEN,URINE NEGATIVE (NEGATIVE); CANNABINOID SCREEN,URINE POSITIVE (NEGATIVE); COCAINE SCREEN,URINE POSITIVE (NEGATIVE); METHADONE SCREEN, URINE NEGATIVE (NEGATIVE); OPIATE SCREEN,URINE NEGATIVE (NEGATIVE); PHENCYCLIDINE SCREEN,URINE NEGATIVE (NEGATIVE)
[2024-04-26 02:16] LABS: BACTERIA,URINE Moderate /HPF (None Seen); RBC,URINE 0-2 /HPF (0-2); WBC,URINE 0-2 /HPF (0-5)
[2024-04-26 02:17] LABS: HYALINE CASTS, URINE 0-2 /LPF (None Seen); SULFOSALICYLIC ACID,URINE 1+ (Negative)
== END 2024-04-26 03:26 | disposition home or self-care (01) ==
LOC: EMS 00:47
DX: E86.0 Dehydration (principal); F14.10 Cocaine abuse, uncomplicated; F32.A Depression, unspecified; I10 Essential (primary) hypertension; F17.210 Nicotine dependence, cigarettes, uncomplicated; F12.90 Cannabis use, unspecified, uncomplicated; F15.90 Other stimulant use, unspecified, uncomplicated; Z98.890 Other specified postprocedural states
CPT/HCPCS: 80307; 81001; 81002; 87086; 87186; 99283

== ENCOUNTER 2024-04-29 09:34 | Emergency (ER) | payer OTHER ==
[~2024-04-29] VITALS: Ht 185.4 cm; Wt 75.0 kg
[2024-04-29 09:45] VITALS: TEMP 98
[2024-04-29] MEDS: DOCUSATE SODIUM 100 MG CAPSULE PO ONE (12:29)
[2024-04-29] MEDS ORDERED: DOCU-385 PO (12:32)
[2024-04-29 12:57] VITALS: BP 140/77; PULSE 81; RESP 18
== END 2024-04-29 13:09 | disposition home or self-care (01) ==
LOC: EMS 09:34
DX: K59.00 Constipation, unspecified (principal); K62.89 Other specified diseases of anus and rectum; I10 Essential (primary) hypertension; F17.210 Nicotine dependence, cigarettes, uncomplicated; F12.90 Cannabis use, unspecified, uncomplicated; F15.10 Other stimulant abuse, uncomplicated
CPT/HCPCS: 99282; Z7502; Z7610

== ENCOUNTER 2024-05-01 00:11 | Emergency (ER) | payer OTHER ==
[~2024-05-01] VITALS: Ht 185.4 cm; Wt 72.3 kg
[~2024-05-01 00:11] MED LIST changes: +DOCU-385 PO
[2024-05-01 02:03] VITALS: BP 139/91; PULSE 99; RESP 16; TEMP 97.8
[2024-05-01] MEDS ORDERED: AZIT250T9 PO (02:10)
[2024-05-01] MEDS ORDERED: BENZ-227 PO (02:10)
== END 2024-05-01 02:17 | disposition home or self-care (01) ==
LOC: EMS 00:12
DX: J18.0 Bronchopneumonia, unspecified organism (principal); I10 Essential (primary) hypertension; F17.210 Nicotine dependence, cigarettes, uncomplicated; F12.90 Cannabis use, unspecified, uncomplicated; F15.10 Other stimulant abuse, uncomplicated
CPT/HCPCS: 99283; Z7502

== ENCOUNTER → 2024-06-15 | Emergency (ER) | payer OTHER ==
[~2024-06-15] VITALS: Ht 185.4 cm; Wt 73.0 kg
[~2024-06-15] MED LIST changes: +ARIP10TA38 PO; +BENZ-227 PO; +ENAL-88 PO; +OMEP20 PO
[2024-06-15 13:56] VITALS: BP 139/81; PULSE 107; RESP 18; TEMP 98.2; O2SAT 100
[2024-06-15] MEDS: OLANZapine 10 MG TABLET PO ONE (21:12)
== END | disposition still patient (30) ==
LOC: EMS 13:36
DX: R10.10 Upper abdominal pain, unspecified (principal); K29.70 Gastritis, unspecified, without bleeding; F25.1 Schizoaffective disorder, depressive type; I10 Essential (primary) hypertension; F17.210 Nicotine dependence, cigarettes, uncomplicated; F12.90 Cannabis use, unspecified, uncomplicated; F15.90 Other stimulant use, unspecified, uncomplicated; F14.90 Cocaine use, unspecified, uncomplicated; Z59.00 Homelessness unspecified
CPT/HCPCS: 99283

== ENCOUNTER 2024-06-18 16:33 | Emergency (ER) | payer OTHER ==
[~2024-06-18] VITALS: Ht 185.4 cm; Wt 73.2 kg
[~2024-06-18 16:33] MED LIST changes: +ENAL-124 PO; -ENAL-88 PO
[2024-06-18 16:38] VITALS: BP 157/107; PULSE 109; RESP 16; TEMP 98.3; O2SAT 97
[2024-06-19] MEDS ORDERED: MOXI3DRO25 OS (17:08)
[2024-06-19] MEDS ORDERED: KETO-108 OS (17:08)
== END 2024-06-18 20:14 | disposition left against medical advice (07) ==
LOC: EMS 16:33
DX: H53.8 Other visual disturbances (principal); Z53.21 Procedure and treatment not carried out due to patient leaving prior to being seen by health care provider

== ENCOUNTER 2024-06-18 22:47 | Emergency (ER) | payer OTHER ==
[2024-06-19] MEDS ORDERED: MOXI3DRO25 OS (17:08)
[2024-06-19] MEDS ORDERED: KETO-108 OS (17:08)
== END 2024-06-18 23:47 | disposition left against medical advice (07) ==
LOC: EMS 22:47
DX: Z53.21 Procedure and treatment not carried out due to patient leaving prior to being seen by health care provider (principal)

== ENCOUNTER → 2024-06-19 | Emergency (ER) | payer OTHER ==
[~2024-06-19] VITALS: Ht 185.4 cm; Wt 75.0 kg
[~2024-06-19] MED LIST changes: +KETO-108 OS; +MOXI3DRO25 OS
[2024-06-19 13:56] VITALS: BP 135/83; PULSE 93; RESP 18; TEMP 98.4; O2SAT 99
[2024-06-19] MEDS: FLUORESCEIN SODIUM 1 MG STRIP OS ONE (15:23)
== END | disposition still patient (30) ==
LOC: EMS 14:03
DX: H10.9 Unspecified conjunctivitis (principal); F32.A Depression, unspecified; I10 Essential (primary) hypertension; F17.210 Nicotine dependence, cigarettes, uncomplicated; F14.90 Cocaine use, unspecified, uncomplicated; F12.90 Cannabis use, unspecified, uncomplicated; F15.90 Other stimulant use, unspecified, uncomplicated; Z98.890 Other specified postprocedural states
CPT/HCPCS: 99283

== ENCOUNTER 2025-03-07 10:03 | Emergency (ER) | payer MEDICAID, OTHER ==
[~2025-03-07] VITALS: Ht 185.4 cm; Wt 84.1 kg
[~2025-03-07 10:03] MED LIST changes: -ARIP2TAB3 PO; -BENZ-227 PO; -DOCU-385 PO; +OMEP-148 PO; -OMEP20 PO
[2025-03-07 11:00] VITALS: TEMP 97.505240
[2025-03-07] MEDS ORDERED: BUPR-50 PO (13:11)
[2025-03-07] MEDS ORDERED: BISA-151 PO (13:40)
[2025-03-07 14:00] VITALS: BP 139/88; PULSE 98; RESP 16; O2SAT 96
[2025-03-07] MEDS: BISACODYL 5 MG EC TABLET PO ONE (14:02)
== END 2025-03-07 14:20 | disposition home or self-care (01) ==
LOC: EMS 10:04
DX: K59.00 Constipation, unspecified (principal); F32.A Depression, unspecified; I10 Essential (primary) hypertension; K85.90 Acute pancreatitis without necrosis or infection, unspecified; F17.210 Nicotine dependence, cigarettes, uncomplicated; F12.90 Cannabis use, unspecified, uncomplicated; F15.90 Other stimulant use, unspecified, uncomplicated; F14.10 Cocaine abuse, uncomplicated; Z72.89 Other problems related to lifestyle; Z98.890 Other specified postprocedural states; Z79.899 Other long term (current) drug therapy; Z87.19 Personal history of other diseases of the digestive system
CPT/HCPCS: 74018; 99283

== ENCOUNTER 2025-03-22 22:58 | Emergency (ER) | payer BC, MEDICAID, OTHER ==
[~2025-03-22] VITALS: Ht 185.4 cm; Wt 84.1 kg
[~2025-03-22 22:58] MED LIST changes: +BISA-151 PO; -BUPR-344 PO; +BUPR-50 PO; -KETO-108 OS; -MOXI3DRO25 OS
[2025-03-22 23:06] VITALS: BP 153/91; PULSE 105; RESP 18; TEMP 98.4; O2SAT 100
[2025-03-22 23:31] LABS: BASOPHILS % (AUTO) 0.9 % (0.0-2.0); EOSINOPHILS % (AUTO) 1.4 % (1.0-6.0); HEMATOCRIT 42.7 % (41-53); HEMOGLOBIN 13.9 g/dL (13.5-17.5); LYMPHOCYTES # (AUTO) 1.3 K/uL (1.0-4.8); MEAN CORPUSCULAR HEMOGLOBIN 26.9 pg (26.0-34.0); MEAN CORPUSCULAR HGB CONC 32.6 G/dL (31.0-37.0); MEAN CORPUSCULAR VOLUME 82 fL (80-100); MONOCYTES # (AUTO) 0.3 K/uL (0.1-1.0); MONOCYTES % (AUTO) 7.7 % (2.0-9.0); NEUTROPHILS # (AUTO) 2.6 K/uL (1.8-7.7); PLATELET COUNT (AUTO) 199 K/uL (150-450); RED BLOOD CELL COUNT(AUTO) 5.18 MIL/uL (4.50-5.90); RED CELL DISTRIBUTION WIDTH 14.5 % (11.5-14.5); WHITE BLOOD COUNT (AUTO) 4.4 K/uL (4.5-11.0)
[2025-03-22 23:36] LABS: ANION GAP 9 mmol/L (8-16); CALCIUM, TOTAL 8.9 mg/dL (8.8-10.5); CARBON DIOXIDE 28 mmol/L (22-29); CHLORIDE 105 mmol/L (98-107); CREATININE 1.12 mg/dL (0.60-1.30); GLOMERULAR FILTR. RATE CALC > 60 mL/min (>60); GLUCOSE,RANDOM 107 mg/dL (70-110); POTASSIUM 3.8 mmol/L (3.5-5.1); SODIUM SERUM 141 mmol/L (136-145); UREA NITROGEN, BLOOD 10 mg/dL (7-18)
[2025-03-22 23:44] LABS: TROPONIN I-HIGH SENSITIVITY 5 ng/L (<76)
== END 2025-03-23 03:08 | disposition left against medical advice (07) ==
LOC: EMS 22:58
DX: R10.9 Unspecified abdominal pain (principal); Z53.21 Procedure and treatment not carried out due to patient leaving prior to being seen by health care provider
CPT/HCPCS: 71045; 80048; 84484; 85025; 93005; 99285; 36415-L1; 36415-TC

== ENCOUNTER 2025-03-28 23:57 | Emergency (ER) | payer BC, MEDICAID ==
[~2025-03-28] VITALS: Ht 185.4 cm; Wt 81.8 kg
[2025-03-29 00:03] VITALS: TEMP 98.2
[2025-03-29 00:44] LABS: BASOPHILS % (AUTO) 0.8 % (0.0-2.0); HEMATOCRIT 42.2 % (41-53); HEMOGLOBIN 13.7 g/dL (13.5-17.5); LYMPHOCYTES # (AUTO) 2.2 K/uL (1.0-4.8); LYMPHOCYTES % (AUTO) 40.8 % (22.0-44.0); MEAN CORPUSCULAR HEMOGLOBIN 26.7 pg (26.0-34.0); MEAN CORPUSCULAR HGB CONC 32.4 G/dL (31.0-37.0); MEAN CORPUSCULAR VOLUME 82 fL (80-100); MONOCYTES # (AUTO) 0.5 K/uL (0.1-1.0); MONOCYTES % (AUTO) 9.7 % (2.0-9.0); NEUTROPHILS # (AUTO) 2.4 K/uL (1.8-7.7); NEUTROPHILS % (AUTO) 45.7 % (40.0-70.0); PLATELET COUNT (AUTO) 202 K/uL (150-450); RED BLOOD CELL COUNT(AUTO) 5.12 MIL/uL (4.50-5.90); RED CELL DISTRIBUTION WIDTH 14.7 % (11.5-14.5); WHITE BLOOD COUNT (AUTO) 5.3 K/uL (4.5-11.0)
[2025-03-29 00:52] LABS: ANION GAP 6 mmol/L (8-16); CALCIUM, TOTAL 8.5 mg/dL (8.8-10.5); CARBON DIOXIDE 28 mmol/L (22-29); CHLORIDE 106 mmol/L (98-107); CREATININE 1.09 mg/dL (0.60-1.30); GLOMERULAR FILTR. RATE CALC > 60 mL/min (>60); GLUCOSE,RANDOM 112 mg/dL (70-110); SODIUM SERUM 140 mmol/L (136-145); UREA NITROGEN, BLOOD 13 mg/dL (7-18)
[2025-03-29 02:33] LABS: COVID AG,FIA SOURCE NASAL SWAB
[2025-03-29 02:38] LABS: APPEARANCE,URINE CLEAR (CLEAR); BILIRUBIN,URINE NEGATIVE (NEGATIVE); COLOR,URINE YELLOW (YELLOW); GLUCOSE, URINE (UA) NEGATIVE (NEGATIVE); KETONES,URINE NEGATIVE (NEGATIVE); LEUKOCYTE ESTERASE ,URINE NEGATIVE (NEGATIVE); NITRATE,URINE NEGATIVE (NEGATIVE); OCCULT BLOOD,URINE NEGATIVE (NEGATIVE); PH,URINE 5.5 (5.0-8.0); PH,URINE DRUG SCREEN 5.5 (5.0-8.0); PROTEIN,URINE TRACE mg/dL (NEGATIVE); SPECIFIC GRAVITIY, URINE 1.036 (1.003-1.030)
[2025-03-29 02:45] LABS: ALCOHOL, URINE DRUG SCREEN NEGATIVE (NEGATIVE); AMPHET/METH SCREEN,URINE POSITIVE (NEGATIVE); BARBITURATE SCREEN, URINE NEGATIVE (NEGATIVE); BENZODIAZEPINES SCREEN,URINE NEGATIVE (NEGATIVE); CANNABINOID SCREEN,URINE POSITIVE (NEGATIVE); COCAINE SCREEN,URINE POSITIVE (NEGATIVE); METHADONE SCREEN, URINE NEGATIVE (NEGATIVE); OPIATE SCREEN,URINE NEGATIVE (NEGATIVE); PHENCYCLIDINE SCREEN,URINE NEGATIVE (NEGATIVE)
[2025-03-29 02:53] LABS: SARS-COV2 (COVID) ANTIGEN,FIA Negative (Negative)
[2025-03-29] MEDS ORDERED: POLY119P3 PO (05:01)
[2025-03-29 06:00] VITALS: BP 140/85; PULSE 98; RESP 16; O2SAT 97
[2025-03-30] MEDS ORDERED: HYDR30SU8 PR (10:08)
== END 2025-03-29 06:39 | disposition home or self-care (01) ==
LOC: EMS 03-29 00:10
DX: K59.00 Constipation, unspecified (principal); F25.1 Schizoaffective disorder, depressive type; I10 Essential (primary) hypertension; F17.210 Nicotine dependence, cigarettes, uncomplicated; F12.90 Cannabis use, unspecified, uncomplicated; F14.90 Cocaine use, unspecified, uncomplicated; F15.90 Other stimulant use, unspecified, uncomplicated; Z87.19 Personal history of other diseases of the digestive system; Z79.899 Other long term (current) drug therapy; Z98.890 Other specified postprocedural states; Z20.822 Contact with and (suspected) exposure to COVID-19
CPT/HCPCS: 99284; 87426; 80048; 81003; 85025; 36415; 74018; 80307; G0480

== ENCOUNTER 2025-03-29 22:56 | Emergency (ER) | payer BC, MEDICAID ==
[~2025-03-29] VITALS: Ht 185.4 cm; Wt 81.8 kg
[~2025-03-29 22:56] MED LIST changes: +POLY119P3 PO
[2025-03-29 23:39] VITALS: BP 145/77; PULSE 95; RESP 19; TEMP 99.1; O2SAT 98
[2025-03-30] MEDS: ACETAMINOPHEN 325 MG TABLET PO ONE (00:57)
[2025-03-30] MEDS ORDERED: HYDR30SU8 PR (10:08)
== END 2025-03-30 01:48 | disposition home or self-care (01) ==
LOC: EMS 03-30 00:49
DX: K59.00 Constipation, unspecified (principal); F32.A Depression, unspecified; I10 Essential (primary) hypertension; F17.210 Nicotine dependence, cigarettes, uncomplicated; F12.90 Cannabis use, unspecified, uncomplicated; F15.90 Other stimulant use, unspecified, uncomplicated; F14.90 Cocaine use, unspecified, uncomplicated; Z98.890 Other specified postprocedural states; Z79.899 Other long term (current) drug therapy
CPT/HCPCS: 99282; Z7502; Z7610

== ENCOUNTER 2025-03-30 08:25 | Emergency (ER) | payer BC, MEDICAID ==
[~2025-03-30] VITALS: Ht 185.4 cm; Wt 84.1 kg
[2025-03-30 08:32] VITALS: TEMP 98.6
[2025-03-30 09:15] VITALS: BP 133/96; PULSE 96; RESP 16; O2SAT 100
[2025-03-30] MEDS ORDERED: HYDR30SU8 PR (10:08)
== END 2025-03-30 12:37 | disposition home or self-care (01) ==
LOC: EMS 08:25
DX: K64.4 Residual hemorrhoidal skin tags (principal); I10 Essential (primary) hypertension; F32.A Depression, unspecified; F12.90 Cannabis use, unspecified, uncomplicated; F15.90 Other stimulant use, unspecified, uncomplicated; F14.90 Cocaine use, unspecified, uncomplicated; Z98.890 Other specified postprocedural states
CPT/HCPCS: 99283; Z7502

== ENCOUNTER 2025-04-01 00:35 | Emergency (ER) | payer BC, MEDICAID ==
[~2025-04-01] VITALS: Ht 185.4 cm; Wt 85.0 kg
[~2025-04-01 00:35] MED LIST changes: -ARIP10TA38 PO; -BISA-151 PO; -BUPR-50 PO; -ENAL-124 PO; +HYDR30SU8 PR; -OMEP-148 PO; -POLY119P3 PO
[2025-04-01 00:43] VITALS: BP 136/88; PULSE 98; RESP 18; TEMP 97.9; O2SAT 100
[2025-04-01] MEDS: BENZONATATE 100 MG CAPSULE PO ONE (02:56)
== END 2025-04-01 03:30 | disposition home or self-care (01) ==
LOC: EMS 03:30
DX: R05.8 Other specified cough (principal); I10 Essential (primary) hypertension; F32.A Depression, unspecified; F12.90 Cannabis use, unspecified, uncomplicated; F17.210 Nicotine dependence, cigarettes, uncomplicated; F15.90 Other stimulant use, unspecified, uncomplicated; F14.90 Cocaine use, unspecified, uncomplicated; Z98.890 Other specified postprocedural states; Z79.899 Other long term (current) drug therapy
CPT/HCPCS: 93005; 99283

== ENCOUNTER 2025-04-02 14:51 | Emergency (ER) | payer BC, MEDICAID | END 2025-04-02 15:47 | disposition left against medical advice (07) | LOC: EMS 14:52 | DX: K92.1 Melena (principal); Z53.21 Procedure and treatment not carried out due to patient leaving prior to being seen by health care provider ==

== ENCOUNTER 2025-04-05 01:52 | Emergency (ER) | payer BC, MEDICAID ==
[~2025-04-05] VITALS: Ht 185.4 cm; Wt 84.1 kg
[2025-04-05 02:46] LABS: BASOPHILS % (AUTO) 0.7 % (0.0-2.0); HEMATOCRIT 41.9 % (41-53); HEMOGLOBIN 13.8 g/dL (13.5-17.5); LYMPHOCYTES # (AUTO) 1.8 K/uL (1.0-4.8); LYMPHOCYTES % (AUTO) 44.2 % (22.0-44.0); MEAN CORPUSCULAR HEMOGLOBIN 27.3 pg (26.0-34.0); MEAN CORPUSCULAR HGB CONC 32.9 G/dL (31.0-37.0); MEAN CORPUSCULAR VOLUME 83 fL (80-100); MONOCYTES # (AUTO) 0.4 K/uL (0.1-1.0); MONOCYTES % (AUTO) 9.7 % (2.0-9.0); NEUTROPHILS # (AUTO) 1.7 K/uL (1.8-7.7); NEUTROPHILS % (AUTO) 43.4 % (40.0-70.0); PLATELET COUNT (AUTO) 180 K/uL (150-450); RED BLOOD CELL COUNT(AUTO) 5.05 MIL/uL (4.50-5.90); RED CELL DISTRIBUTION WIDTH 14.9 % (11.5-14.5)
[2025-04-05 02:48] VITALS: TEMP 97.9
[2025-04-05 03:16] LABS: ANION GAP 11 mmol/L (8-16); CARBON DIOXIDE 27 mmol/L (22-29); CHLORIDE 106 mmol/L (98-107); CREATININE 1.04 mg/dL (0.60-1.30); GLOMERULAR FILTR. RATE CALC > 60 mL/min (>60); GLUCOSE,RANDOM 100 mg/dL (70-110); POTASSIUM 3.9 mmol/L (3.5-5.1); SODIUM SERUM 144 mmol/L (136-145); UREA NITROGEN, BLOOD 11 mg/dL (7-18)
[2025-04-05 06:00] VITALS: BP 140/73; PULSE 72; RESP 16; O2SAT 96
== END 2025-04-05 06:18 | disposition home or self-care (01) ==
LOC: EMS 02:16
DX: R19.5 Other fecal abnormalities (principal); I10 Essential (primary) hypertension; F32.A Depression, unspecified; F17.210 Nicotine dependence, cigarettes, uncomplicated; F12.90 Cannabis use, unspecified, uncomplicated; F15.90 Other stimulant use, unspecified, uncomplicated; F14.90 Cocaine use, unspecified, uncomplicated; Z87.19 Personal history of other diseases of the digestive system; Z98.890 Other specified postprocedural states; Z79.899 Other long term (current) drug therapy
CPT/HCPCS: 80048; 85025; 99283

== ENCOUNTER 2025-04-10 21:49 | Emergency (ER) | payer BC, MEDICAID ==
[~2025-04-10] VITALS: Ht 185.4 cm; Wt 95.0 kg
[2025-04-10 21:57] VITALS: BP 159/74; PULSE 88; RESP 16; TEMP 98; O2SAT 99
[2025-04-11] MEDS: DiphenhydrAMINE HCL 25 MG CAPSULE PO ONE (02:18)
[2025-04-12] MEDS ORDERED: HYDR-4268 TP (08:36)
== END 2025-04-11 03:31 | disposition home or self-care (01) ==
LOC: EMS 21:51
DX: L29.9 Pruritus, unspecified (principal); R21 Rash and other nonspecific skin eruption; I10 Essential (primary) hypertension; F32.A Depression, unspecified; F17.210 Nicotine dependence, cigarettes, uncomplicated; F14.90 Cocaine use, unspecified, uncomplicated; F12.90 Cannabis use, unspecified, uncomplicated; F15.90 Other stimulant use, unspecified, uncomplicated; Z98.890 Other specified postprocedural states; Z79.899 Other long term (current) drug therapy
CPT/HCPCS: 99282; Z7502; Z7610

== ENCOUNTER 2025-04-12 06:31 | Emergency (ER) | payer BC, MEDICAID ==
[~2025-04-12] VITALS: Ht 185.4 cm; Wt 95.0 kg
[2025-04-12 06:37] VITALS: TEMP 97.8
[2025-04-12] MEDS ORDERED: HYDR-4268 TP (08:36)
[2025-04-12] MEDS: HydrOXYzine HCL 25 MG TABLET PO ONE (09:16)
[2025-04-12] MEDS: PERMETHRIN 1% 60 ML LOTION TP ONE (09:26)
[2025-04-12 09:30] VITALS: BP 131/74; PULSE 84; RESP 18; O2SAT 99
== END 2025-04-12 09:34 | disposition home or self-care (01) ==
LOC: EMS 06:36
DX: B88.9 Infestation, unspecified (principal); R21 Rash and other nonspecific skin eruption; F32.A Depression, unspecified; I10 Essential (primary) hypertension; F17.210 Nicotine dependence, cigarettes, uncomplicated; F15.90 Other stimulant use, unspecified, uncomplicated; F12.90 Cannabis use, unspecified, uncomplicated; F14.90 Cocaine use, unspecified, uncomplicated; Z98.890 Other specified postprocedural states; Z79.899 Other long term (current) drug therapy
CPT/HCPCS: 99283

== ENCOUNTER 2025-04-21 07:30 | Emergency (ER) | payer BC, MEDICAID ==
[~2025-04-21] VITALS: Ht 185.4 cm; Wt 86.4 kg
[~2025-04-21 07:30] MED LIST changes: +AMLO-257 PO; +ARIP5TAB37 PO; +BUPR-50 PO; +HYDR30CR3 TP; -HYDR30SU8 PR; +MIRT-89 PO
[2025-04-21 07:34] VITALS: BP 141/78; PULSE 65; RESP 18; TEMP 98.5; O2SAT 98
== END 2025-04-21 08:08 | disposition home or self-care (01) ==
LOC: EMS 07:55
DX: K64.9 Unspecified hemorrhoids (principal); K59.00 Constipation, unspecified; F25.1 Schizoaffective disorder, depressive type; I10 Essential (primary) hypertension; F12.90 Cannabis use, unspecified, uncomplicated; F17.210 Nicotine dependence, cigarettes, uncomplicated; Z59.00 Homelessness unspecified; Z87.19 Personal history of other diseases of the digestive system; Z79.899 Other long term (current) drug therapy
CPT/HCPCS: 99282; Z7502

== ENCOUNTER 2025-04-27 06:05 | Emergency (ER) | payer BC, MEDICAID ==
[~2025-04-27] VITALS: Ht 185.4 cm; Wt 80.0 kg
[2025-04-27 06:10] VITALS: TEMP 98
[2025-04-27] MEDS: MAGNESIUM CITRATE [LEMON] 300 ML ORAL SOLUTION PO ONE (08:59)
[2025-04-27 09:00] VITALS: BP 135/84; PULSE 75; RESP 18; O2SAT 98
== END 2025-04-27 09:06 | disposition home or self-care (01) ==
LOC: EMS 06:05
DX: K59.00 Constipation, unspecified (principal); I10 Essential (primary) hypertension; F12.90 Cannabis use, unspecified, uncomplicated; F15.10 Other stimulant abuse, uncomplicated; F17.210 Nicotine dependence, cigarettes, uncomplicated; F32.A Depression, unspecified; Z87.19 Personal history of other diseases of the digestive system; Z79.899 Other long term (current) drug therapy
CPT/HCPCS: 99282; Z7502

== ENCOUNTER 2025-04-29 05:37 | Emergency (ER) | payer BC, MEDICAID ==
[~2025-04-29] VITALS: Ht 185.4 cm; Wt 80.0 kg
[2025-04-29 05:39] VITALS: BP 131/82; PULSE 82; RESP 16; TEMP 98.1; O2SAT 97
[2025-04-29] MEDS: OFLOXACIN 0.3% 5 ML OPHTHALMIC SOLUTION OU ONE (06:47)
== END 2025-04-29 07:04 | disposition home or self-care (01) ==
LOC: EMS 05:38
DX: H10.9 Unspecified conjunctivitis (principal); I10 Essential (primary) hypertension; F12.90 Cannabis use, unspecified, uncomplicated; F32.A Depression, unspecified; F17.210 Nicotine dependence, cigarettes, uncomplicated; F15.90 Other stimulant use, unspecified, uncomplicated; F14.90 Cocaine use, unspecified, uncomplicated; Z87.19 Personal history of other diseases of the digestive system; Z79.899 Other long term (current) drug therapy
CPT/HCPCS: 99283

== ENCOUNTER 2025-05-16 15:33 | Emergency (ER) | payer BC, MEDICAID ==
[~2025-05-16] VITALS: Ht 185.4 cm; Wt 85.0 kg
[2025-05-16 15:41] VITALS: BP 136/93; PULSE 114; RESP 18; TEMP 97.3; O2SAT 100
[2025-05-16 16:30] LABS: PLATELET COUNT (AUTO) 168 K/uL (150-450); RED BLOOD CELL COUNT(AUTO) 5.39 MIL/uL (4.50-5.90); RED CELL DISTRIBUTION WIDTH 14.3 % (11.5-14.5); WHITE BLOOD COUNT (AUTO) 4.3 K/uL (4.5-11.0)
[2025-05-16 16:37] LABS: CALCIUM, TOTAL 9.1 mg/dL (8.8-10.5); CREATININE 1.53 mg/dL (0.60-1.30); GLOMERULAR FILTR. RATE CALC 58.0 mL/min (>60); GLUCOSE,RANDOM 94.0 mg/dL (70-110); SODIUM SERUM 141.0 mmol/L (136-145); UREA NITROGEN, BLOOD 10.0 mg/dL (7-18)
[2025-05-16 16:42] LABS: ASPARTATE AMINOTRANSFERASE 18.0 U/L (15-37); TOTAL PROTEIN, SERUM 7.1 g/dL (6.4-8.2)
[2025-05-16] MEDS ORDERED: ONDA-104 PO (17:19)
== END 2025-05-16 17:31 | disposition home or self-care (01) ==
LOC: EMS 15:33
DX: R11.2 Nausea with vomiting, unspecified (principal); F32.A Depression, unspecified; I10 Essential (primary) hypertension; F15.90 Other stimulant use, unspecified, uncomplicated; F12.90 Cannabis use, unspecified, uncomplicated; F14.90 Cocaine use, unspecified, uncomplicated; F17.210 Nicotine dependence, cigarettes, uncomplicated; Z98.890 Other specified postprocedural states; Z87.19 Personal history of other diseases of the digestive system; Z79.899 Other long term (current) drug therapy
CPT/HCPCS: 80048; 80076; 85025; 99283

== ENCOUNTER 2025-05-17 13:23 | Emergency (ER) | payer BC, MEDICAID ==
[~2025-05-17] VITALS: Ht 185.4 cm; Wt 72.7 kg
[~2025-05-17 13:23] MED LIST changes: +ONDA-104 PO
[2025-05-17 13:36] VITALS: BP 162/99; PULSE 70; RESP 16; TEMP 98; O2SAT 98
[2025-05-17] MEDS: ACETAMINOPHEN 500 MG TABLET PO ONE (14:26)
[2025-05-17] MEDS: LIDOCAINE 5% TRANSDERMAL PATCH TD ONE (16:11)
== END 2025-05-17 16:21 | disposition home or self-care (01) ==
LOC: EMS 13:42
DX: S80.02XA Contusion of left knee, initial encounter (principal); F32.A Depression, unspecified; I10 Essential (primary) hypertension; F12.90 Cannabis use, unspecified, uncomplicated; F15.90 Other stimulant use, unspecified, uncomplicated; F14.90 Cocaine use, unspecified, uncomplicated; F17.210 Nicotine dependence, cigarettes, uncomplicated; Z98.890 Other specified postprocedural states; Z79.899 Other long term (current) drug therapy; Z87.19 Personal history of other diseases of the digestive system; W19.XXXA Unspecified fall, initial encounter; Y93.01 Activity, walking, marching and hiking; Y92.89 Other specified places as the place of occurrence of the external cause; Y99.8 Other external cause status
CPT/HCPCS: 99283

== ENCOUNTER 2025-06-03 12:10 | Emergency (ER) | payer BC, MEDICAID ==
[~2025-06-03] VITALS: Ht 185.4 cm; Wt 85.0 kg
[2025-06-03 12:13] VITALS: TEMP 98
[2025-06-03] MEDS ORDERED: IBUP-1492 PO (13:36)
[2025-06-03] MEDS: IBUPROFEN 800 MG TABLET PO ONE (13:46)
[2025-06-03 14:59] VITALS: BP 137/86; PULSE 84; RESP 18; O2SAT 99
== END 2025-06-03 15:09 | disposition home or self-care (01) ==
LOC: EMS 12:25
DX: S76.112A Strain of left quadriceps muscle, fascia and tendon, initial encounter (principal); S80.02XA Contusion of left knee, initial encounter; R26.2 Difficulty in walking, not elsewhere classified; F32.A Depression, unspecified; I10 Essential (primary) hypertension; F17.210 Nicotine dependence, cigarettes, uncomplicated; F15.90 Other stimulant use, unspecified, uncomplicated; F12.90 Cannabis use, unspecified, uncomplicated; Z98.890 Other specified postprocedural states; Z87.19 Personal history of other diseases of the digestive system; Z79.899 Other long term (current) drug therapy; W19.XXXA Unspecified fall, initial encounter; Y93.89 Activity, other specified; Y92.89 Other specified places as the place of occurrence of the external cause; Y99.8 Other external cause status
CPT/HCPCS: 29505; 99283

== ENCOUNTER 2025-06-29 16:00 | Emergency (ER) | payer BC, MEDICAID ==
[~2025-06-29] VITALS: Ht 185.4 cm; Wt 79.1 kg
[~2025-06-29 16:00] MED LIST changes: -HYDR30CR3 TP; +IBUP-1492 PO; -ONDA-104 PO
[2025-06-29 16:07] VITALS: TEMP 100
[2025-06-29 17:00] VITALS: BP 128/98; PULSE 98; RESP 17; O2SAT 98
[2025-06-29] MEDS ORDERED: FLUORESCEIN SODIUM 1 MG STRIP ONE ×2 (17:31→17:44)
[2025-06-29] MEDS: PROPARACAINE HCL 0.5% 15 ML OPHTHALMIC SOLUTION OU ONE (17:42)
== END 2025-06-29 19:20 | disposition left against medical advice (07) ==
LOC: EMS 16:00
DX: S05.01XA Injury of conjunctiva and corneal abrasion without foreign body, right eye, initial encounter (principal); S05.02XA Injury of conjunctiva and corneal abrasion without foreign body, left eye, initial encounter; H40.9 Unspecified glaucoma; F32.A Depression, unspecified; F12.90 Cannabis use, unspecified, uncomplicated; F17.210 Nicotine dependence, cigarettes, uncomplicated; F11.90 Opioid use, unspecified, uncomplicated; F15.90 Other stimulant use, unspecified, uncomplicated; I10 Essential (primary) hypertension; Z98.49 Cataract extraction status, unspecified eye; Z87.19 Personal history of other diseases of the digestive system; Z79.1 Long term (current) use of non-steroidal anti-inflammatories (NSAID); Z79.899 Other long term (current) drug therapy; X58.XXXA Exposure to other specified factors, initial encounter; Y93.89 Activity, other specified; Y92.89 Other specified places as the place of occurrence of the external cause; Y99.8 Other external cause status
CPT/HCPCS: 99283

== ENCOUNTER 2025-07-03 06:07 | Emergency (ER) | payer BC, MEDICAID ==
[~2025-07-03] VITALS: Ht 185.4 cm; Wt 75.0 kg
[2025-07-03 06:17] VITALS: BP 112/97; PULSE 96; RESP 18; O2SAT 100
[2025-07-03] MEDS: PROPARACAINE HCL 0.5% 15 ML OPHTHALMIC SOLUTION OU ONE (08:15)
[2025-07-03 08:16] VITALS: TEMP 97.9
[2025-07-03] MEDS ORDERED: DORZ10DR10 OU (09:21)
== END 2025-07-03 09:24 | disposition home or self-care (01) ==
LOC: EMS 06:07
DX: H40.9 Unspecified glaucoma (principal); F32.A Depression, unspecified; I10 Essential (primary) hypertension; F12.90 Cannabis use, unspecified, uncomplicated; F15.90 Other stimulant use, unspecified, uncomplicated; F14.90 Cocaine use, unspecified, uncomplicated; F19.11 Other psychoactive substance abuse, in remission; Z98.49 Cataract extraction status, unspecified eye; Z87.19 Personal history of other diseases of the digestive system; Z79.1 Long term (current) use of non-steroidal anti-inflammatories (NSAID); Z79.899 Other long term (current) drug therapy; Z59.00 Homelessness unspecified
CPT/HCPCS: 99283

== ENCOUNTER 2025-07-05 05:22 | Emergency (ER) | payer BC, MEDICAID ==
[~2025-07-05] VITALS: Ht 175.3 cm; Wt 89.0 kg
[~2025-07-05 05:22] MED LIST changes: +DORZ10DR10 OU
[2025-07-05 05:55] VITALS: TEMP 97.8
[2025-07-05 05:58] VITALS: BP 148/88; PULSE 79; RESP 18; O2SAT 98
== END 2025-07-05 08:04 | disposition home or self-care (01) ==
LOC: EMS 05:23
DX: M79.671 Pain in right foot (principal); M79.672 Pain in left foot; F19.10 Other psychoactive substance abuse, uncomplicated; F32.A Depression, unspecified; I10 Essential (primary) hypertension; F12.90 Cannabis use, unspecified, uncomplicated; F17.210 Nicotine dependence, cigarettes, uncomplicated; F11.90 Opioid use, unspecified, uncomplicated; F15.90 Other stimulant use, unspecified, uncomplicated; Z98.49 Cataract extraction status, unspecified eye; Z79.1 Long term (current) use of non-steroidal anti-inflammatories (NSAID); Z79.899 Other long term (current) drug therapy; Z87.19 Personal history of other diseases of the digestive system; Z59.00 Homelessness unspecified
CPT/HCPCS: 99282; Z7502

== ENCOUNTER 2025-07-06 14:22 | Emergency (ER) | payer BC, MEDICAID ==
[~2025-07-06] VITALS: Ht 185.4 cm; Wt 80.9 kg
[2025-07-06 14:30] VITALS: BP 139/95; PULSE 95; RESP 18; TEMP 98.4; O2SAT 98
[2025-07-06 15:10] LABS: PLATELET COUNT (AUTO) 160 K/uL (150-450); RED BLOOD CELL COUNT(AUTO) 4.85 MIL/uL (4.50-5.90); RED CELL DISTRIBUTION WIDTH 14.2 % (11.5-14.5); WHITE BLOOD COUNT (AUTO) 4.3 K/uL (4.5-11.0)
[2025-07-06] MEDS: FAMOTIDINE 20 MG/2 ML VIAL IVP ONE (15:14)
[2025-07-06] MEDS: ONDANSETRON HCL 4 MG/2 ML VIAL IVP ONE (15:15)
[2025-07-06] MEDS: SODIUM CHLORIDE 0.9% 1,000 ML IV ONE (15:15)
[2025-07-06] MEDS: ACETAMINOPHEN 500 MG TABLET PO ONE (15:15)
[2025-07-06 15:21] LABS: CALCIUM, TOTAL 8.5 mg/dL (8.8-10.5); CREATININE 0.84 mg/dL (0.60-1.30); GLOMERULAR FILTR. RATE CALC > 60 mL/min (>60); GLUCOSE,RANDOM 92 mg/dL (70-110); SODIUM SERUM 140 mmol/L (136-145); UREA NITROGEN, BLOOD 7 mg/dL (7-18)
[2025-07-06 15:24] LABS: ASPARTATE AMINOTRANSFERASE 28.0 U/L (15-37); TOTAL PROTEIN, SERUM 6.3 g/dL (6.4-8.2)
[2025-07-06] MEDS ORDERED: SODIUM CHLORIDE 0.9% 0 ML ONE (15:39)
[2025-07-06] MEDS ORDERED: IOHEXOL 350 MG/ML 100 ML VIAL ONE (15:39)
[2025-07-06] MEDS ORDERED: 0.9% SODIUM CHLORIDE 10 ML SYRINGE IVP ONE (15:39)
[2025-07-06 16:22] LABS: COVID AG,FIA SOURCE NASAL SWAB
[2025-07-06 16:34] LABS: APPEARANCE,URINE CLEAR (CLEAR); GLUCOSE, URINE (UA) NEGATIVE (NEGATIVE); LEUKOCYTE ESTERASE ,URINE NEGATIVE (NEGATIVE); NITRATE,URINE NEGATIVE (NEGATIVE); OCCULT BLOOD,URINE NEGATIVE (NEGATIVE); SPECIFIC GRAVITIY, URINE 1.025 (1.003-1.030)
[2025-07-06 16:38] LABS: SARS-COV2 (COVID) ANTIGEN,FIA Negative (Negative)
[2025-07-06 16:39] LABS: PH,URINE DRUG SCREEN 5.5 (5.0-8.0)
[2025-07-06 16:41] LABS: ALCOHOL, URINE DRUG SCREEN NEGATIVE (NEGATIVE); AMPHET/METH SCREEN,URINE POSITIVE (NEGATIVE); BARBITURATE SCREEN, URINE NEGATIVE (NEGATIVE); CANNABINOID SCREEN,URINE POSITIVE (NEGATIVE); COCAINE SCREEN,URINE POSITIVE (NEGATIVE); METHADONE SCREEN, URINE NEGATIVE (NEGATIVE)
[2025-07-06] MEDS ORDERED: ZOLPIDEM TARTRATE 10 MG TABLET PO PRN (16:45)
== END 2025-07-06 18:31 | disposition left against medical advice (07) ==
LOC: EMS 14:22
DX: R10.33 Periumbilical pain (principal); R19.7 Diarrhea, unspecified; F32.A Depression, unspecified; I10 Essential (primary) hypertension; F12.90 Cannabis use, unspecified, uncomplicated; F14.90 Cocaine use, unspecified, uncomplicated; F15.90 Other stimulant use, unspecified, uncomplicated; Z98.49 Cataract extraction status, unspecified eye; Z87.19 Personal history of other diseases of the digestive system; Z79.1 Long term (current) use of non-steroidal anti-inflammatories (NSAID); Z79.899 Other long term (current) drug therapy; Z20.822 Contact with and (suspected) exposure to COVID-19
CPT/HCPCS: 80048; 80076; 80307; 81003; 83690; 85025; 96361; 96374; 96375; 99284; G0480; J2405; J3490; J7030; J7050; 36415-L1; 36415-TC

== ENCOUNTER 2025-07-17 05:50 | Emergency (ER) | payer BC, MEDICAID ==
[~2025-07-17] VITALS: Ht 180.3 cm; Wt 63.6 kg
[2025-07-17 05:59] VITALS: TEMP 98.6
[2025-07-17 06:52] VITALS: BP 137/90; PULSE 88; RESP 16; O2SAT 99
[2025-07-17] MEDS: SULFACETAMIDE SODIUM 10% 15 ML OPHTHALMIC SOLUTION OU ONE (07:12)
[2025-07-17] MEDS: NAPHAZOLINE/PHENIR 0.025-0.3% 15 ML OPHTHALMIC SOLUTION OU ONE (07:12)
== END 2025-07-17 07:31 | disposition home or self-care (01) ==
LOC: EMS 05:52
DX: H10.13 Acute atopic conjunctivitis, bilateral (principal); I10 Essential (primary) hypertension; F12.90 Cannabis use, unspecified, uncomplicated; F32.A Depression, unspecified; Z79.1 Long term (current) use of non-steroidal anti-inflammatories (NSAID); Z87.19 Personal history of other diseases of the digestive system; Z79.899 Other long term (current) drug therapy
CPT/HCPCS: 99283

== ENCOUNTER 2025-07-22 23:55 | Emergency (ER) | payer BC, MEDICAID ==
[~2025-07-22] VITALS: Ht 180.3 cm; Wt 63.6 kg
[2025-07-22 23:58] VITALS: BP 135/76; PULSE 82; RESP 16; TEMP 97.9; O2SAT 97
== END 2025-07-23 02:03 | disposition home or self-care (01) ==
LOC: EMS 23:57
DX: F25.1 Schizoaffective disorder, depressive type (principal); I10 Essential (primary) hypertension; F32.A Depression, unspecified; F12.90 Cannabis use, unspecified, uncomplicated; F14.90 Cocaine use, unspecified, uncomplicated; F15.90 Other stimulant use, unspecified, uncomplicated; F17.210 Nicotine dependence, cigarettes, uncomplicated; Z98.49 Cataract extraction status, unspecified eye; Z96.1 Presence of intraocular lens; Z87.19 Personal history of other diseases of the digestive system; Z79.1 Long term (current) use of non-steroidal anti-inflammatories (NSAID); Z79.899 Other long term (current) drug therapy
CPT/HCPCS: 99283

== ENCOUNTER 2025-07-23 08:52 | Emergency (ER) | payer BC, MEDICAID ==
[~2025-07-23] VITALS: Ht 180.3 cm; Wt 81.8 kg
[2025-07-23 09:17] VITALS: TEMP 98.1
[2025-07-23 09:30] VITALS: BP 129/68; PULSE 89; RESP 17; O2SAT 99
[2025-07-23] MEDS: NAPHAZOLINE/PHENIR 0.025-0.3% 15 ML OPHTHALMIC SOLUTION OU ONE (10:10)
[2025-07-23] MEDS: KETOROLAC TROMETHAMINE 0.4% 5 ML OPHTHALMIC SOLUTION OU ONE (10:10)
== END 2025-07-23 11:19 | disposition home or self-care (01) ==
LOC: EMS 09:03
DX: H10.13 Acute atopic conjunctivitis, bilateral (principal); I10 Essential (primary) hypertension; F32.A Depression, unspecified; F17.210 Nicotine dependence, cigarettes, uncomplicated; F15.90 Other stimulant use, unspecified, uncomplicated; F12.90 Cannabis use, unspecified, uncomplicated; Z87.19 Personal history of other diseases of the digestive system; Z98.49 Cataract extraction status, unspecified eye; Z96.1 Presence of intraocular lens
CPT/HCPCS: 99283

== ENCOUNTER 2025-08-04 11:50 | Emergency (ER) | payer BC, MEDICAID ==
[~2025-08-04] VITALS: Ht 185.4 cm; Wt 75.0 kg
[2025-08-04 12:01] VITALS: BP 126/80; PULSE 105; RESP 18; TEMP 97.5; O2SAT 98
[2025-08-04] MEDS ORDERED: IBUP-1492 PO (13:30)
[2025-08-04] MEDS: IBUPROFEN 600 MG TABLET PO ONE (13:56)
== END 2025-08-04 13:58 | disposition home or self-care (01) ==
LOC: EMS 11:52
DX: S70.12XA Contusion of left thigh, initial encounter (principal); I10 Essential (primary) hypertension; F32.A Depression, unspecified; F17.210 Nicotine dependence, cigarettes, uncomplicated; F11.90 Opioid use, unspecified, uncomplicated; F12.90 Cannabis use, unspecified, uncomplicated; F15.90 Other stimulant use, unspecified, uncomplicated; Z96.1 Presence of intraocular lens; Z98.49 Cataract extraction status, unspecified eye; Z87.19 Personal history of other diseases of the digestive system; X58.XXXA Exposure to other specified factors, initial encounter; Y93.01 Activity, walking, marching and hiking; Y92.89 Other specified places as the place of occurrence of the external cause; Y99.8 Other external cause status
CPT/HCPCS: 99283

== ENCOUNTER 2025-08-10 02:48 | Emergency (ER) | payer BC, MEDICAID ==
[~2025-08-10] VITALS: Ht 185.4 cm; Wt 81.8 kg
[~2025-08-10 02:48] MED LIST changes: -AMLO-257 PO; -ARIP5TAB37 PO; -BUPR-50 PO; -DORZ10DR10 OU; -MIRT-89 PO
[2025-08-10 03:04] VITALS: TEMP 98.2
[2025-08-10 03:39] LABS: PLATELET COUNT (AUTO) 240 K/uL (150-450); RED BLOOD CELL COUNT(AUTO) 4.83 MIL/uL (4.50-5.90); RED CELL DISTRIBUTION WIDTH 15.0 % (11.5-14.5); WHITE BLOOD COUNT (AUTO) 4.2 K/uL (4.5-11.0)
[2025-08-10 03:46] LABS: CALCIUM, TOTAL 8.9 mg/dL (8.8-10.5); CREATININE 1.01 mg/dL (0.60-1.30); GLOMERULAR FILTR. RATE CALC > 60 mL/min (>60); GLUCOSE,RANDOM 97 mg/dL (70-110); SODIUM SERUM 141 mmol/L (136-145); UREA NITROGEN, BLOOD 16 mg/dL (7-18)
[2025-08-10 04:10] LABS: COVID AG,FIA SOURCE NASAL SWAB
[2025-08-10 04:18] LABS: SARS-COV2 (COVID) ANTIGEN,FIA Negative (Negative)
[2025-08-10 05:46] VITALS: BP 103/59; PULSE 83; RESP 18; O2SAT 98
== END 2025-08-10 06:40 | disposition home or self-care (01) ==
LOC: EMS 02:48
DX: F25.1 Schizoaffective disorder, depressive type (principal); I10 Essential (primary) hypertension; F32.A Depression, unspecified; F17.210 Nicotine dependence, cigarettes, uncomplicated; F12.90 Cannabis use, unspecified, uncomplicated; F14.90 Cocaine use, unspecified, uncomplicated; F15.90 Other stimulant use, unspecified, uncomplicated; Z87.19 Personal history of other diseases of the digestive system; Z96.1 Presence of intraocular lens; Z98.49 Cataract extraction status, unspecified eye; Z79.899 Other long term (current) drug therapy; Z20.822 Contact with and (suspected) exposure to COVID-19
CPT/HCPCS: 99284; 87426; 80048; 85025; 36415; G0480